=== PATIENT | male | born 1995 | race Two or more races ===

== ENCOUNTER 2023-10-19 15:03 | Emergency (ER) | payer SELFPAY ==
[~2023-10-19] VITALS: Ht 172.7 cm; Wt 83.0 kg
[2023-10-19 18:50] VITALS: BP 140/88; PULSE 92; RESP 20; TEMP 98.1; O2SAT 97
[2023-10-19] MEDS ORDERED: DexAMETHasone SOD PHOS 10MG/1ML VIAL INJ IM ONE (19:00)
[2023-10-19] MEDS ORDERED: cefTRIAXone SOD 1,000 MG VL IM ONE (19:00)
[2023-10-19] MEDS ORDERED: HYDROcodone-ACET 5/325MG TAB PO ONE (19:00)
[2023-10-19] MEDS ORDERED: IBUP1TAB5 PO (19:03)
[2023-10-19] MEDS ORDERED: PRED20TA2 PO (19:03)
[2023-10-19] MEDS ORDERED: CLIN300C70 PO (19:03)
[2023-10-19] MEDS ORDERED: diphenhdrAMINE HCL 25 MG CAP PO ONE (19:15)
[2023-10-19] MEDS ORDERED: BACDST PO (19:37)
== END 2023-10-19 19:51 | disposition home or self-care (01) ==
LOC: ER 15:03
DX: K02.9 Dental caries, unspecified (principal); L03.211 Cellulitis of face
CPT/HCPCS: 96372; 99284; J0696; J1100